=== PATIENT | male | born 1975 | race Caucasian/White ===

== ENCOUNTER 2019-12-19 14:21 | Emergency (ER) | payer MEDICAID, OTHER ==
[~2019-12-19] VITALS: Ht 160 cm; Wt 70.0 kg
[2019-12-19] MEDS ORDERED: ACETAMINOPHEN 325MG TABLET PO STA (14:50)
[2019-12-19] MEDS ORDERED: ONDANSETRON HCL 4MG/2ML INJ IV STA (14:50)
[2019-12-19] MEDS ORDERED: SODIUM CHLORIDE 0.9% 1,000 ML IV ONE (15:00)
[2019-12-19 15:20] LABS: BASOPHILS % 2.3 % (0.0-2.0); EOSINOPHILS % 2.5 % (0.0-5.0); HEMATOCRIT. 33.3 % (42.0-52.0); HEMOGLOBIN. 10.2 g/dL (14.0-18.0); LYMPHOCYTES % 37.3 % (20.0-50.0); MEAN CORPUSCULAR HEMOGLOBIN 19.7 pg (28.0-32.0); MEAN CORPUSCULAR VOLUME 64.4 fL (80.0-94.0); MEAN PLATELET VOLUME 8.6 fl (7.4-10.4); MONOCYTES % 10.2 % (2.0-8.0); NEUTROPHILS % 47.7 % (40.0-76.0); PLATELET 226 x1000/uL (130-400); RED BLOOD CELL COUNT 5.17 mill/uL (4.7-6.1); RED CELL DISTRIBUTION WIDTH 26.2 % (11.6-14.6)
[2019-12-19 15:21] LABS: CHLORIDE 104 mEq/L (98-107)
[2019-12-19 15:44] LABS: ETHANOL BLOOD 404 mg/dL
[2019-12-19 15:57] LABS: PLATELET ESTIMATE NORMAL
[2019-12-19 18:57] VITALS: BP 124/81
== END 2019-12-19 19:33 | disposition home or self-care (01) ==
LOC: ER 14:21
DX: R10.31 Right lower quadrant pain (principal); F10.129 Alcohol abuse with intoxication, unspecified; I10 Essential (primary) hypertension; Y90.8 Blood alcohol level of 240 mg/100 ml or more
CPT/HCPCS: 36415; 74176; 80053; 80320; 85025; 96361; 96374; 99284; J2405; G0480

== ENCOUNTER 2020-01-10 21:18 | Emergency (ER) | payer MEDICAID ==
[~2020-01-10] VITALS: Ht 165.1 cm; Wt 64.0 kg
[2020-01-11] MEDS ORDERED: TETANUS, DIPHTHERIA, PERTUSSIS VAC/PF 0.5ML (>7YR OLD) IM ONE (01:45)
[2020-01-11 04:03] VITALS: BP 140/91
== END 2020-01-11 04:08 | disposition home or self-care (01) ==
LOC: ER 21:18
DX: S01.81XA Laceration without foreign body of other part of head, initial encounter (principal); Y08.89XA Assault by other specified means, initial encounter; Y93.89 Activity, other specified; Y92.89 Other specified places as the place of occurrence of the external cause; Y99.8 Other external cause status; F10.229 Alcohol dependence with intoxication, unspecified; Y90.0 Blood alcohol level of less than 20 mg/100 ml
CPT/HCPCS: 70486; 93005; 99285

== ENCOUNTER 2020-08-02 16:36 | Emergency (ER) | payer MEDICAID ==
[~2020-08-02] VITALS: Ht 165.1 cm; Wt 68.0 kg
[2020-08-02 16:45] VITALS: BP 170/108
[2020-08-02] MEDS ORDERED: ONDANSETRON HCL 4MG/2ML INJ IV STA (17:26)
[2020-08-02] MEDS ORDERED: MAGNESIUM/ALUMINUM HYDROXIDE/SIMETHICONE 30ML UDC PO STA (17:26)
[2020-08-02] MEDS ORDERED: FAMOTIDINE 20MG/2ML VIAL IV ONE (17:30)
[2020-08-02] MEDS ORDERED: SODIUM CHLORIDE 0.9% 1,000 ML IV ONE (17:30)
[2020-08-02 19:39] LABS: BASOPHILS % 3.6 % (0.0-2.0); EOSINOPHILS % 3.3 % (0.0-5.0); HEMATOCRIT. 24.9 % (42.0-52.0); HEMOGLOBIN. 7.4 g/dL (14.0-18.0); LYMPHOCYTES % 33.6 % (20.0-50.0); MEAN CORPUSCULAR HEMOGLOBIN 19.7 pg (28.0-32.0); MEAN CORPUSCULAR VOLUME 66.7 fL (80.0-94.0); MEAN PLATELET VOLUME 6.7 fl (7.4-10.4); MONOCYTES % 14.9 % (2.0-8.0); NEUTROPHILS % 44.6 % (40.0-76.0); PLATELET 196 x1000/uL (130-400); RED BLOOD CELL COUNT 3.74 mill/uL (4.7-6.1); RED CELL DISTRIBUTION WIDTH 19.8 % (11.6-14.6)
[2020-08-02 19:45] LABS: CHLORIDE 111 mEq/L (98-107)
[2020-08-02 20:02] LABS: ETHANOL BLOOD 399 mg/dL
[2020-08-02 22:34] LABS: PLATELET ESTIMATE NORMAL
== END 2020-08-02 21:15 | disposition left against medical advice (07) ==
LOC: ER 16:36
DX: F10.129 Alcohol abuse with intoxication, unspecified (principal); Y90.8 Blood alcohol level of 240 mg/100 ml or more
CPT/HCPCS: 36415; 80053; 80320; 83690; 85025; 99281; J7030; G0480

== ENCOUNTER 2020-12-18 10:14 | Emergency (ER) | payer MEDICAID ==
[~2020-12-18] VITALS: Ht 165.1 cm; Wt 70.0 kg
[2020-12-18 10:40] VITALS: BP 112/72
== END 2020-12-18 10:57 | disposition home or self-care (01) ==
LOC: ER 10:14
DX: K08.89 Other specified disorders of teeth and supporting structures (principal); K40.90 Unilateral inguinal hernia, without obstruction or gangrene, not specified as recurrent; I10 Essential (primary) hypertension; F10.10 Alcohol abuse, uncomplicated; Y90.9 Presence of alcohol in blood, level not specified
CPT/HCPCS: 99283

== ENCOUNTER 2021-01-06 10:59 | Inpatient (IN) | payer MEDICAID ==
[~2021-01-06] VITALS: Ht 152.4 cm; Wt 66.2 kg
[2021-01-06] VITALS: BP 150/83
[2021-01-06] MEDS ORDERED: MORPHINE SULFATE 4 MG/ML CPJ (NOT FOR IM USE) IV STA (11:21)
[2021-01-06] MEDS ORDERED: METOCLOPRAMIDE HCL 10MG/2ML VIAL IV STA (11:21)
[2021-01-06] MEDS ORDERED: SODIUM CHLORIDE 0.9% 1,000 ML IV ONE (11:30)
[2021-01-06 11:49] LABS: CHLORIDE 105 mEq/L (98-107)
[2021-01-06 11:52] LABS: HEMATOCRIT. 22.6 % (42.0-52.0); MEAN CORPUSCULAR VOLUME 54.3 fL (80.0-94.0); MEAN PLATELET VOLUME 8.2 fl (7.4-10.4); PLATELET 387 x1000/uL (130-400); RED BLOOD CELL COUNT 4.15 mill/uL (4.7-6.1); RED CELL DISTRIBUTION WIDTH 20.3 % (11.6-14.6)
[2021-01-06] MEDS ORDERED: MORPHINE SULFATE 2 MG/ML CPJ (NOT FOR IM USE) IV NR (11:52)
[2021-01-06 11:54] LABS: HEMOGLOBIN. 6.2 g/dL (14.0-18.0)
[2021-01-06 11:57] LABS: PARTIAL THROMBOPLASTIN TIME 22.8 sec (23.4-31.0); PROTHROMBIN TIME 10.4 sec (9.6-11.0)
[2021-01-06 12:17] LABS: PLATELET ESTIMATE NORMAL
[2021-01-06] MEDS ORDERED: PANTOPRAZOLE SODIUM 40 MG/VIAL IV ONE (12:30)
[2021-01-07] VITALS (10 sets, daily range): BP systolic 142–166; BP diastolic 83–100
[2021-01-07] MEDS: LORAZEPAM 2MG/ML CPJ IV PRN ×2 (00:02→09:11)
[2021-01-07] MEDS ORDERED: IPRATROPIUM/ALBUTEROL 0.5-3(2.5)MG/3ML NEB HHN PRN (00:15)
[2021-01-07] MEDS ORDERED: *PATIENT'S OWN MEDICATION STORAGE XX SCH (00:45)
[2021-01-07] MEDS ORDERED: FOLIC ACID 1 MG, THIAMINE HCL 100 MG, MVI, ADULT NO.1 10 ML in DEXTROSE 5% WATER 1,000 ML IV SCH (01:00)
[2021-01-07 01:11] LABS: *AMPHETAMINES SCREEN URINE NEGATIVE (NEGATIVE); *BARBITURATES SCREEN URINE NEGATIVE (NEGATIVE); *BENZODIAZEPINES SCREEN URINE NEGATIVE (NEGATIVE)
[2021-01-07 01:12] LABS: *COCAINE SCREEN URINE NEGATIVE (NEGATIVE); CANNABINOID URINE SCREEN NEGATIVE (NEGATIVE); METHADONE URINE SCREEN NEGATIVE (NEGATIVE); OPIATES URINE SCREEN PRESUMTIVE POSITIVE (NEGATIVE); PHENCYCLIDINE URINE SCREEN NEGATIVE (NEGATIVE)
[2021-01-07] MEDS: DEXT 5%/0.45% NACL KCL 20MEQ/L 1,000 ML IV SCH ×3 (05:26→18:10)
[2021-01-07] MEDS ORDERED: HYDRALAZINE 10 MG in SODIUM CHLORIDE 0.9% 49.5 ML IV PRN (07:00)
[2021-01-07] MEDS ORDERED: HYDRALAZINE 20MG/ML VIAL IV PRN (07:00)
[2021-01-07] MEDS: PANTOPRAZOLE SODIUM 40 MG/VIAL IV SCH ×2 (09:11→21:48)
[2021-01-07 11:06] LABS: BASOPHILS % 0.8 % (0.0-2.0); EOSINOPHILS % 1.3 % (0.0-5.0); HEMATOCRIT. 25.8 % (42.0-52.0); HEMOGLOBIN. 7.6 g/dL (14.0-18.0); MEAN CORPUSCULAR HEMOGLOBIN 18.3 pg (28.0-32.0); MEAN CORPUSCULAR VOLUME 62.2 fL (80.0-94.0); MEAN PLATELET VOLUME 8.2 fl (7.4-10.4); MONOCYTES % 10.9 % (2.0-8.0); PLATELET 264 x1000/uL (130-400); RED BLOOD CELL COUNT 4.14 mill/uL (4.7-6.1); RED CELL DISTRIBUTION WIDTH 30.9 % (11.6-14.6)
[2021-01-07 11:41] LABS: CHLORIDE 102 mEq/L (98-107)
[2021-01-07] MEDS ORDERED: INFLUENZA VACCINE 05/PF 0.5 ML SYRINGE IM ONE (12:00)
[2021-01-07] MEDS ORDERED: PNEUMOCOCCAL 23-VAL P-SAC VAC 0.5 ML IM ONE (12:00)
[2021-01-07] MEDS ORDERED: DEXT 5%/0.45% NACL 1000ML 1,000 ML IV SCH (13:15)
[2021-01-07] MEDS ORDERED: KETAMINE HCL 50 MG/ML 10ML ONE (14:43)
[2021-01-07] MEDS ORDERED: MIDAZOLAM HCL 5 MG/5 ML VIAL ONE (15:28)
[2021-01-07] MEDS ORDERED: LIDOCAINE HCL 1% 20ML VIAL (Pyxis) INJ ONE (15:29)
[2021-01-07] MEDS ORDERED: PROPOFOL 200MG/20ML VIAL IV ONE (15:29)
[2021-01-07] MEDS: CHLORDIAZEPOXIDE 5 MG CAPSULE PO SCH (21:48)
[2021-01-08] MEDS: DEXT 5%/0.45% NACL KCL 20MEQ/L 1,000 ML IV SCH ×3 (00:41→16:05)
[2021-01-08 05:09] VITALS: BP 144/92
[2021-01-08] MEDS: CHLORDIAZEPOXIDE 5 MG CAPSULE PO SCH ×3 (05:15→21:26)
[2021-01-08 07:10] LABS: HEMATOCRIT. 27.5 % (42.0-52.0); HEMOGLOBIN. 8.2 g/dL (14.0-18.0); MEAN CORPUSCULAR HEMOGLOBIN 18.5 pg (28.0-32.0); MEAN CORPUSCULAR VOLUME 61.6 fL (80.0-94.0); MEAN PLATELET VOLUME 8.3 fl (7.4-10.4); PLATELET 264 x1000/uL (130-400); RED BLOOD CELL COUNT 4.46 mill/uL (4.7-6.1); RED CELL DISTRIBUTION WIDTH 31.6 % (11.6-14.6)
[2021-01-08 07:25] LABS: CHLORIDE 100 mEq/L (98-107)
[2021-01-08 07:37] LABS: TOTAL IRON BINDING CAPACITY 440 ug/dL (250-450)
[2021-01-08 08:00] VITALS: BP 154/101
[2021-01-08 08:05] LABS: VITAMIN B12 SERUM 329 pg/mL (211-911)
[2021-01-08] MEDS: PANTOPRAZOLE SODIUM 40 MG/VIAL IV SCH ×2 (08:47→21:26)
[2021-01-08 11:32] LABS: FERRITIN 12 ng/mL (22-322)
[2021-01-08 11:43] LABS: HEPATITIS B SURFACE ANTIGEN NEGATIVE
[2021-01-08 12:00] VITALS: BP 156/100
[2021-01-08] MEDS: FERROUS SULFATE 325MG TABLET PO SCH ×2 (13:41→17:28)
[2021-01-08 13:46] LABS: PLATELET ESTIMATE NORMAL
[2021-01-08 16:00] VITALS: BP 135/99
[2021-01-08] MEDS: DOCUSATE SODIUM 100MG CAPSULE PO SCH (17:28)
[2021-01-08 20:00] VITALS: BP 147/82
[2021-01-09] VITALS: BP 134/80
[2021-01-09] MEDS: DEXT 5%/0.45% NACL KCL 20MEQ/L 1,000 ML IV SCH ×2 (00:05→08:27)
[2021-01-09 04:00] VITALS: BP 128/82
[2021-01-09] MEDS: CHLORDIAZEPOXIDE 5 MG CAPSULE PO SCH ×3 (05:21→21:06)
[2021-01-09 07:34] LABS: BASOPHILS % 1.2 % (0.0-2.0); HEMATOCRIT. 26.1 % (42.0-52.0); HEMOGLOBIN. 7.6 g/dL (14.0-18.0); LYMPHOCYTES % 22.2 % (20.0-50.0); MEAN CORPUSCULAR HEMOGLOBIN 18.3 pg (28.0-32.0); MEAN CORPUSCULAR VOLUME 63.1 fL (80.0-94.0); MEAN PLATELET VOLUME 8.5 fl (7.4-10.4); MONOCYTES % 10.7 % (2.0-8.0); NEUTROPHILS % 60.9 % (40.0-76.0); PLATELET 237 x1000/uL (130-400); RED BLOOD CELL COUNT 4.14 mill/uL (4.7-6.1); RED CELL DISTRIBUTION WIDTH 31.3 % (11.6-14.6)
[2021-01-09 08:00] VITALS: BP 128/94
[2021-01-09 08:01] LABS: CHLORIDE 105 mEq/L (98-107)
[2021-01-09] MEDS: FERROUS SULFATE 325MG TABLET PO SCH ×3 (08:27→17:38)
[2021-01-09] MEDS: DOCUSATE SODIUM 100MG CAPSULE PO SCH ×2 (08:27→17:38)
[2021-01-09] MEDS: PANTOPRAZOLE SODIUM 40 MG/VIAL IV SCH ×2 (08:27→21:06)
[2021-01-09 12:00] VITALS: BP 133/94
[2021-01-09 16:00] VITALS: BP 140/92
[2021-01-09 20:00] VITALS: BP 120/74
[2021-01-10] VITALS: BP 125/88
[2021-01-10 04:00] VITALS: BP 118/84
[2021-01-10] MEDS: CHLORDIAZEPOXIDE 5 MG CAPSULE PO SCH ×2 (05:19→13:40)
[2021-01-10 06:23] LABS: HEMOGLOBIN. 7.9 g/dL (14.0-18.0); MEAN CORPUSCULAR HEMOGLOBIN 18.5 pg (28.0-32.0); MEAN CORPUSCULAR VOLUME 63.4 fL (80.0-94.0); MEAN PLATELET VOLUME 8.5 fl (7.4-10.4); PLATELET 255 x1000/uL (130-400); RED BLOOD CELL COUNT 4.26 mill/uL (4.7-6.1); RED CELL DISTRIBUTION WIDTH 31.4 % (11.6-14.6)
[2021-01-10 06:51] LABS: CHLORIDE 106 mEq/L (98-107)
[2021-01-10 08:00] VITALS: BP 115/86
[2021-01-10] MEDS: FERROUS SULFATE 325MG TABLET PO SCH ×3 (08:49→17:27)
[2021-01-10] MEDS: DOCUSATE SODIUM 100MG CAPSULE PO SCH ×2 (08:49→17:27)
[2021-01-10] MEDS: PANTOPRAZOLE SODIUM 40 MG/VIAL IV SCH (08:49)
[2021-01-10] MEDS ORDERED: FOLIC ACID 1 MG, THIAMINE HCL 100 MG, MVI, ADULT NO.1 10 ML in DEXTROSE 5% WATER 1,000 ML IV SCH (09:00)
[2021-01-10 12:00] VITALS: BP 123/90
[2021-01-10] MEDS ORDERED: FERR-63 PO (14:17)
[2021-01-10] MEDS ORDERED: FAMO-135 MT (14:17)
[2021-01-10 16:00] VITALS: BP 123/90
[2021-01-10 16:09] VITALS: BP 123/90
[2021-01-10 16:48] LABS: PLATELET ESTIMATE NORMAL
== END 2021-01-10 18:00 | disposition home or self-care (01) | DRG 241 ==
LOC: ER 10:59 → 6EST 14:32 → EDBEDREQ 14:44 → EDBEDREQTM 15:19 → ENRESERV 19:48
PROVIDERS: ADMIT Internal Medicine; ATTEND Internal Medicine
PROC: 30233N1 Transfusion of Nonautologous Red Blood Cells into Peripheral Vein, Percutaneous Approach (ICD-10-PCS; 2021-01-06)
PROC: 0DB78ZX Excision of Stomach, Pylorus, Via Natural or Artificial Opening Endoscopic, Diagnostic (ICD-10-PCS; principal; 2021-01-07)
DX: K29.71 Gastritis, unspecified, with bleeding (principal); K74.60 Unspecified cirrhosis of liver; E87.1 Hypo-osmolality and hyponatremia; D50.9 Iron deficiency anemia, unspecified; F10.20 Alcohol dependence, uncomplicated; I10 Essential (primary) hypertension; K44.9 Diaphragmatic hernia without obstruction or gangrene; Z20.822 Contact with and (suspected) exposure to COVID-19; Y90.9 Presence of alcohol in blood, level not specified; Z71.41 Alcohol abuse counseling and surveillance of alcoholic
CPT/HCPCS: 36415; 71045; 72170; 73552; 76700; 80048; 80053; 80305; 82270; 82607; 82728; 82746; 83540; 83550; 85025; 85044; 86705; 86709; 86803; 86850; 86900; 86920; 87340; 87426; 88305; 88312; 88313; 90686; 90732; 93005; 99285; C9113; J0360; J2060; J2250; J2270; J2704; J2765; J3411; J3490; J7030; J7040; J7042; J7070; P9016